=== PATIENT | female | born 1965 | race African-American/Black ===

== ENCOUNTER 2018-09-28 00:15 | Inpatient (IN) | payer MEDICARE, MEDICAID ==
[2018-09-28] VITALS (9 sets, daily range): BP systolic 134–165; BP diastolic 77–100
[~2018-09-28] VITALS: Ht 162.6 cm; Wt 89.8 kg
[~2018-09-28 00:15] MED LIST: BENA40TA9 PO; CARV6.2548 PO; CLON0.2T PO; CYAN100096 PO; DOXA4TAB3 PO; GABA300S PO; INSLAN SQ; NEPVIT PO; REN800 PO
[2018-09-28] MEDS ORDERED: NITROGLYCERIN OINT 1GM/INCH UDPKT TD ONE (00:30)
[2018-09-28] MEDS ORDERED: ASPIRIN 81MG TABLET PO ONE (00:30)
[2018-09-28 01:20] LABS: BG BASE EXCESS 0.9 mmol/L (-2.0-2.0); BG BILEVEL POS AIRWAY PRESSURE 18/5; BG DEOXYHEMOGLOBIN 0.3 % (0.0-5.0); BG FRACTION INSPIRED OXYGEN 100; BG HCO3 ACT 27.2 mmol/L (22.0-26.0); BG METHEMOGLOBIN 0.3 % (0.0-1.5); BG OXYGEN SATURATION 99.7 % (92.0-98.5); BG OXYHEMOGLOBIN 98.4 % (94.0-97.0); BG PCO2 50.7 mmHg (35.0-45.0); BG PH 7.348 (7.350-7.450); BG PO2 370.6 mmHg (75.0-100.0); BG SAMPLE SITE RIGHT BRACHIAL; BG TOTAL HEMOGLOBIN 12.5 g/dL (12.0-18.0); BG VENT MODE MASK - BIPAP
[2018-09-28 01:43] LABS: HEMATOCRIT. 38.5 % (36.0-48.0); HEMOGLOBIN. 11.9 g/dL (12.0-16.0); MEAN CORPUSCULAR HEMOGLOBIN 28.3 pg (28.0-32.0); MEAN CORPUSCULAR VOLUME 91.5 fL (81.0-99.0); MEAN PLATELET VOLUME 7.5 fl (7.4-10.4); PLATELET 155 x1000/uL (130-400); RED BLOOD CELL COUNT 4.21 mill/uL (4.2-5.4); RED CELL DISTRIBUTION WIDTH 16.7 % (11.6-14.6)
[2018-09-28 01:46] LABS: CHLORIDE 98 mEq/L (98-107); INR 1.1; PARTIAL THROMBOPLASTIN TIME 24.3 sec (23.4-31.0); PROTHROMBIN TIME 10.9 sec (9.1-11.1)
[2018-09-28 03:22] LABS: PLATELET ESTIMATE NORMAL
[2018-09-28] MEDS ORDERED: GABA-531 PO (06:18)
[2018-09-28] MEDS ORDERED: CARV12.545 PO (06:18)
[2018-09-28] MEDS ORDERED: IRBE300T18 PO (06:31)
[2018-09-28] MEDS ORDERED: ASPI-1159 PO (06:31)
[2018-09-28] MEDS ORDERED: LEVVL SQ (06:31)
[2018-09-28] MEDS ORDERED: FURO80TA3 PO (06:31)
[2018-09-28] MEDS ORDERED: ISOS20TA8 PO (06:31)
[2018-09-28] MEDS ORDERED: INSU100I19 SQ (06:31)
[2018-09-28] MEDS ORDERED: OMEP20CA10 PO (06:31)
[2018-09-28] MEDS ORDERED: POLY17PO3 PO (06:31)
[2018-09-28] MEDS ORDERED: ISOS1TAB PO (06:31)
[2018-09-28] MEDS ORDERED: FEBU40TA PO (06:31)
[2018-09-28] MEDS: GABAPENTIN 300MG CAPSULE PO SCH (10:35)
[2018-09-28] MEDS: CARVEDILOL 12.5MG TABLET PO SCH ×2 (10:35→21:23)
[2018-09-28] MEDS ORDERED: DEXTROSE 50% WATER 50ML SYRINGE IV PRN (11:45)
[2018-09-28] MEDS: INSULIN LISPRO 100 UNITS/ML SUBCUT SCH ×3 (13:00→21:12)
[2018-09-28] MEDS: ISOSORB DINIT/HYDRALAZINE HCL 20/37.5MG TABLET PO SCH ×2 (13:00→21:13)
[2018-09-28] MEDS: BLOOD SUGAR DIAGNOSTIC STRIP TEST SCH ×3 (13:06→21:06)
[2018-09-28] MEDS: FUROSEMIDE 40MG TABLET PO SCH (13:59)
[2018-09-28] MEDS: SEVELAMER CARBONATE 800 MG TABLET PO SCH ×2 (13:59→18:46)
[2018-09-28] MEDS ORDERED: LEVOFLOXACIN 750MG PREMIX 150 ML IV NR (14:30)
[2018-09-28] MEDS: CEFTRIAXONE 1,000 MG in DEXTROSE 5% WATER 50 ML IV SCH (15:14)
[2018-09-28] MEDS: IPRATROPIUM/ALBUTEROL 0.5-3(2.5)MG/3ML NEB HHN PRN (16:00)
[2018-09-28] MEDS: ASPIRIN 81MG EC TABLET PO SCH (16:23)
[2018-09-28 18:13] LABS: CLARITY URINE TURBID (CLEAR); COLOR URINE YELLOW (YELLOW); KETONES URINE NEGATIVE (NEGATIVE); LEUKOCYTE ESTERASE URINE NEGATIVE (NEGATIVE); NITRITE URINE NEGATIVE (NEGATIVE); OCCULT BLOOD URINE TRACE (NEGATIVE); PH URINE 7.5 (4.5-8.0); PROTEIN URINE 3+ (NEGATIVE); SPECIFIC GRAVITY URINE 1.014 (1.005-1.030); UROBILINOGEN URINE 0.2 E.U./dL (0.2-1.0)
[2018-09-28] MEDS: OMEPRAZOLE 20MG CAPSULE EXTENDED RELEASE PO SCH (21:12)
[2018-09-28] MEDS: CLONIDINE 0.1MG TABLET PO PRN ×2 (21:19→21:21)
[2018-09-28] MEDS: GUAIFENESIN/DM 600MG/30MG ER TAB 12HR PO SCH (21:20)
[2018-09-29] VITALS (12 sets, daily range): BP systolic 139–185; BP diastolic 75–110
[2018-09-29] MEDS: GUAIFENESIN 200MG/10ML SUGAR FREE UDC PO PRN ×3 (04:05→21:04)
[2018-09-29] MEDS: IPRATROPIUM/ALBUTEROL 0.5-3(2.5)MG/3ML NEB HHN PRN ×5 (04:10→20:18)
[2018-09-29] MEDS: ISOSORB DINIT/HYDRALAZINE HCL 20/37.5MG TABLET PO SCH ×4 (05:48→23:35)
[2018-09-29 07:02] LABS: CHLORIDE 105 mEq/L (98-107)
[2018-09-29 07:14] LABS: LDL CHOLESTEROL 59 mg/dL (5-100)
[2018-09-29 07:16] LABS: CREATINE KINASE 124 IU/L (26-192)
[2018-09-29 07:17] LABS: T4 FREE 0.99 ng/dL (0.76-1.46)
[2018-09-29 07:19] LABS: HDL CHOLESTEROL 57 mg/dL (40-59)
[2018-09-29 07:21] LABS: CREATINE KINASE MB FRACTION 3.5 ng/mL (0.5-3.6)
[2018-09-29 07:24] LABS: HEMATOCRIT 36.5 % (36.0-48.0); HEMOGLOBIN 11.3 g/dL (12.0-16.0); MEAN CORPUSCULAR HEMOGLOBIN 28.6 pg (28.0-32.0); MEAN CORPUSCULAR VOLUME 92.4 fL (81.0-99.0); PLATELET 125 x1000/uL (130-400); RED BLOOD CELL COUNT 3.95 mill/uL (4.2-5.4); RED CELL DISTRIBUTION WIDTH 16.9 % (11.6-14.6)
[2018-09-29] MEDS: BLOOD SUGAR DIAGNOSTIC STRIP TEST SCH ×4 (07:42→21:05)
[2018-09-29] MEDS: INSULIN LISPRO 100 UNITS/ML SUBCUT SCH ×4 (08:00→21:00)
[2018-09-29 08:02] LABS: TOTAL IRON BINDING CAPACITY 226 ug/dL (250-450)
[2018-09-29] MEDS: FOLIC ACID/VITAMIN B COMP W-C TABLET PO SCH (08:19)
[2018-09-29] MEDS: LOSARTAN POTASSIUM 100 MG TABLET PO SCH (08:24)
[2018-09-29] MEDS: SEVELAMER CARBONATE 800 MG TABLET PO SCH ×3 (08:24→17:17)
[2018-09-29] MEDS: FUROSEMIDE 40MG TABLET PO SCH (08:25)
[2018-09-29] MEDS: GABAPENTIN 300MG CAPSULE PO SCH (08:26)
[2018-09-29] MEDS: GUAIFENESIN/DM 600MG/30MG ER TAB 12HR PO SCH ×2 (08:26→21:05)
[2018-09-29] MEDS: ASPIRIN 81MG EC TABLET PO SCH (08:26)
[2018-09-29] MEDS: OMEPRAZOLE 20MG CAPSULE EXTENDED RELEASE PO SCH ×2 (08:26→21:04)
[2018-09-29] MEDS: CARVEDILOL 12.5MG TABLET PO SCH ×2 (08:28→21:04)
[2018-09-29] MEDS: CLONIDINE 0.1MG TABLET PO PRN (11:33)
[2018-09-29] MEDS: CEFTRIAXONE 1,000 MG in DEXTROSE 5% WATER 50 ML IV SCH (14:55)
[2018-09-29] MEDS: AMLODIPINE 10MG TABLET PO SCH (15:55)
[2018-09-29] MEDS: ACETAMINOPHEN 325MG TABLET PO PRN (16:11)
[2018-09-29] MEDS: TEMAZEPAM 15MG CAPSULE PO PRN (23:35)
[2018-09-30] VITALS (13 sets, daily range): BP systolic 146–185; BP diastolic 75–108
[2018-09-30] MEDS: IPRATROPIUM/ALBUTEROL 0.5-3(2.5)MG/3ML NEB HHN PRN ×5 (00:32→20:37)
[2018-09-30] MEDS: ISOSORB DINIT/HYDRALAZINE HCL 20/37.5MG TABLET PO SCH ×3 (05:26→18:26)
[2018-09-30] MEDS: ACETAMINOPHEN 325MG TABLET PO PRN (05:26)
[2018-09-30] MEDS: BLOOD SUGAR DIAGNOSTIC STRIP TEST SCH ×4 (07:41→21:36)
[2018-09-30] MEDS: INSULIN LISPRO 100 UNITS/ML SUBCUT SCH ×4 (08:00→21:00)
[2018-09-30] MEDS: FUROSEMIDE 40MG TABLET PO SCH ×2 (09:00→14:19)
[2018-09-30] MEDS: GABAPENTIN 300MG CAPSULE PO SCH (09:00)
[2018-09-30] MEDS: FOLIC ACID/VITAMIN B COMP W-C TABLET PO SCH (09:00)
[2018-09-30] MEDS: LOSARTAN POTASSIUM 100 MG TABLET PO SCH ×2 (09:00→14:19)
[2018-09-30] MEDS: SEVELAMER CARBONATE 800 MG TABLET PO SCH ×3 (09:00→18:24)
[2018-09-30] MEDS: ASPIRIN 81MG EC TABLET PO SCH ×2 (09:00→14:19)
[2018-09-30] MEDS: OMEPRAZOLE 20MG CAPSULE EXTENDED RELEASE PO SCH ×2 (09:00→21:35)
[2018-09-30] MEDS: GUAIFENESIN/DM 600MG/30MG ER TAB 12HR PO SCH ×2 (09:00→21:35)
[2018-09-30] MEDS: AMLODIPINE 10MG TABLET PO SCH ×2 (09:00→14:19)
[2018-09-30] MEDS: CARVEDILOL 12.5MG TABLET PO SCH ×3 (09:00→21:36)
[2018-09-30 09:23] LABS: BASOPHILS % 0.8 % (0.0-2.0); EOSINOPHILS % 5.9 % (0.0-5.0); HEMATOCRIT. 35.4 % (36.0-48.0); LYMPHOCYTES % 14.9 % (20.0-50.0); MEAN CORPUSCULAR HEMOGLOBIN 28.6 pg (28.0-32.0); MEAN CORPUSCULAR VOLUME 92.5 fL (81.0-99.0); MEAN PLATELET VOLUME 8.2 fl (7.4-10.4); MONOCYTES % 13.9 % (2.0-8.0); NEUTROPHILS % 64.5 % (40.0-76.0); PLATELET 140 x1000/uL (130-400); RED BLOOD CELL COUNT 3.83 mill/uL (4.2-5.4); RED CELL DISTRIBUTION WIDTH 16.7 % (11.6-14.6)
[2018-09-30 10:01] LABS: CREATINE KINASE MB FRACTION 2.7 ng/mL (0.5-3.6)
[2018-09-30] MEDS: GUAIFENESIN 200MG/10ML SUGAR FREE UDC PO PRN (12:43)
[2018-09-30] MEDS: LEVOFLOXACIN 500MG PREMIX 100 ML IV SCH (14:02)
[2018-09-30] MEDS: CEFTRIAXONE 1,000 MG in DEXTROSE 5% WATER 50 ML IV SCH (15:44)
[2018-09-30] MEDS: NIFEDIPINE XL 60MG TAB PO SCH (16:34)
[2018-09-30] MEDS ORDERED: ENALAPRIL 2.5MG/2ML VIAL 2ML IV NR (18:59)
[2018-09-30] MEDS ORDERED: ENALAPRIL 2.5MG/2ML VIAL 2ML IV PRN (19:00)
[2018-09-30] MEDS: TEMAZEPAM 15MG CAPSULE PO PRN (21:44)
[2018-10-01] VITALS (14 sets, daily range): BP systolic 106–163; BP diastolic 69–89
[2018-10-01] MEDS: IPRATROPIUM/ALBUTEROL 0.5-3(2.5)MG/3ML NEB HHN PRN ×4 (00:22→20:39)
[2018-10-01] MEDS: ISOSORB DINIT/HYDRALAZINE HCL 20/37.5MG TABLET PO SCH ×4 (00:49→18:41)
[2018-10-01 07:18] LABS: BASOPHILS % 0.7 % (0.0-2.0); EOSINOPHILS % 5.9 % (0.0-5.0); HEMATOCRIT. 34.4 % (36.0-48.0); HEMOGLOBIN. 10.9 g/dL (12.0-16.0); LYMPHOCYTES % 17.5 % (20.0-50.0); MEAN CORPUSCULAR HEMOGLOBIN 28.8 pg (28.0-32.0); MEAN PLATELET VOLUME 7.8 fl (7.4-10.4); MONOCYTES % 13.7 % (2.0-8.0); NEUTROPHILS % 62.2 % (40.0-76.0); PLATELET 132 x1000/uL (130-400); RED BLOOD CELL COUNT 3.78 mill/uL (4.2-5.4); RED CELL DISTRIBUTION WIDTH 16.4 % (11.6-14.6)
[2018-10-01] MEDS: BLOOD SUGAR DIAGNOSTIC STRIP TEST SCH ×4 (08:07→21:00)
[2018-10-01] MEDS: INSULIN LISPRO 100 UNITS/ML SUBCUT SCH ×4 (08:29→21:00)
[2018-10-01] MEDS: NIFEDIPINE XL 60MG TAB PO SCH ×2 (08:30→16:29)
[2018-10-01] MEDS: GABAPENTIN 300MG CAPSULE PO SCH (08:31)
[2018-10-01] MEDS: GUAIFENESIN/DM 600MG/30MG ER TAB 12HR PO SCH ×2 (08:31→21:28)
[2018-10-01] MEDS: LOSARTAN POTASSIUM 100 MG TABLET PO SCH (08:31)
[2018-10-01] MEDS: OMEPRAZOLE 20MG CAPSULE EXTENDED RELEASE PO SCH (08:31)
[2018-10-01] MEDS: ASPIRIN 81MG EC TABLET PO SCH (08:31)
[2018-10-01] MEDS: FOLIC ACID/VITAMIN B COMP W-C TABLET PO SCH (08:31)
[2018-10-01] MEDS: SEVELAMER CARBONATE 800 MG TABLET PO SCH ×3 (08:56→17:31)
[2018-10-01] MEDS: FUROSEMIDE 40MG TABLET PO SCH (08:57)
[2018-10-01] MEDS: CARVEDILOL 12.5MG TABLET PO SCH ×2 (08:57→23:00)
[2018-10-01] MEDS: ONDANSETRON HCL 4MG/2ML INJ IV PRN ×2 (12:31→21:24)
[2018-10-01] MEDS: CEFTRIAXONE 1,000 MG in DEXTROSE 5% WATER 50 ML IV SCH (14:33)
[2018-10-01] MEDS ORDERED: BISACODYL 10MG SUPP PR NR (16:15)
[2018-10-01] MEDS ORDERED: MAGNESIUM CITRATE 300ML SOLUTION PO NR (18:00)
[2018-10-01] MEDS ORDERED: MAGNESIUM CITRATE 300ML SOLUTION PO PRN (20:30)
[2018-10-02] VITALS (9 sets, daily range): BP systolic 109–155; BP diastolic 60–97
[2018-10-02] MEDS: IPRATROPIUM/ALBUTEROL 0.5-3(2.5)MG/3ML NEB HHN PRN ×4 (00:21→15:27)
[2018-10-02] MEDS: ISOSORB DINIT/HYDRALAZINE HCL 20/37.5MG TABLET PO SCH ×3 (01:51→18:00)
[2018-10-02] MEDS: BLOOD SUGAR DIAGNOSTIC STRIP TEST SCH ×3 (07:30→21:00)
[2018-10-02] MEDS: SEVELAMER CARBONATE 800 MG TABLET PO SCH ×2 (08:00→14:18)
[2018-10-02] MEDS: INSULIN LISPRO 100 UNITS/ML SUBCUT SCH ×2 (08:00→21:00)
[2018-10-02 08:03] LABS: BASOPHILS % 0.8 % (0.0-2.0); EOSINOPHILS % 4.5 % (0.0-5.0); HEMATOCRIT. 34.5 % (36.0-48.0); HEMOGLOBIN. 10.9 g/dL (12.0-16.0); LYMPHOCYTES % 14.4 % (20.0-50.0); MEAN CORPUSCULAR HEMOGLOBIN 28.4 pg (28.0-32.0); MEAN CORPUSCULAR VOLUME 90.5 fL (81.0-99.0); MEAN PLATELET VOLUME 7.9 fl (7.4-10.4); MONOCYTES % 9.4 % (2.0-8.0); NEUTROPHILS % 70.9 % (40.0-76.0); PLATELET 132 x1000/uL (130-400); RED BLOOD CELL COUNT 3.82 mill/uL (4.2-5.4); RED CELL DISTRIBUTION WIDTH 15.9 % (11.6-14.6)
[2018-10-02] MEDS: ASPIRIN 81MG EC TABLET PO SCH ×2 (09:00→18:13)
[2018-10-02] MEDS: FOLIC ACID/VITAMIN B COMP W-C TABLET PO SCH (09:00)
[2018-10-02] MEDS: LOSARTAN POTASSIUM 100 MG TABLET PO SCH ×2 (09:00→18:12)
[2018-10-02] MEDS: FUROSEMIDE 40MG TABLET PO SCH ×2 (09:00→18:12)
[2018-10-02] MEDS: GUAIFENESIN/DM 600MG/30MG ER TAB 12HR PO SCH ×3 (09:00→21:07)
[2018-10-02] MEDS: GABAPENTIN 300MG CAPSULE PO SCH ×2 (09:00→18:12)
[2018-10-02] MEDS: NIFEDIPINE XL 60MG TAB PO SCH ×2 (09:00→18:12)
[2018-10-02] MEDS: FAMOTIDINE 20MG TABLET PO SCH ×2 (09:00→18:13)
[2018-10-02] MEDS: CARVEDILOL 12.5MG TABLET PO SCH ×3 (09:00→21:07)
[2018-10-02] MEDS: LEVOFLOXACIN 500MG PREMIX 100 ML IV SCH (14:20)
[2018-10-02] MEDS: ENOXAPARIN 30MG/0.3ML SYR SUBCUT SCH (15:00)
[2018-10-02 15:38] LABS: BG BASE EXCESS 1.5 mmol/L (-2.0-2.0); BG DEOXYHEMOGLOBIN 18.9 % (0.0-5.0); BG FRACTION INSPIRED OXYGEN 21; BG HCO3 ACT 28.5 mmol/L (22.0-26.0); BG METHEMOGLOBIN 0.4 % (0.0-1.5); BG OXYGEN SATURATION 80.8 % (92.0-98.5); BG OXYHEMOGLOBIN 79.7 % (94.0-97.0); BG PH 7.324 (7.350-7.450); BG PO2 47.5 mmHg (75.0-100.0); BG SAMPLE SITE RIGHT RADIAL; BG TOTAL HEMOGLOBIN 12.1 g/dL (12.0-18.0); BG VENT MODE ROOM AIR
[2018-10-02 19:56] LABS: BG BASE EXCESS 1.1 mmol/L (-2.0-2.0); BG CARBOXYHEMOGLOBIN 1.3 % (0.5-1.5); BG DEOXYHEMOGLOBIN 4.6 % (0.0-5.0); BG FRACTION INSPIRED OXYGEN 30; BG HCO3 ACT 27.8 mmol/L (22.0-26.0); BG METHEMOGLOBIN 0.1 % (0.0-1.5); BG OXYGEN SATURATION 95.3 % (92.0-98.5); BG PCO2 54.1 mmHg (35.0-45.0); BG PH 7.329 (7.350-7.450); BG SAMPLE SITE RIGHT RADIAL; BG TOTAL HEMOGLOBIN 11.5 g/dL (12.0-18.0); BG VENT MODE NASAL CANNULA
[2018-10-02] MEDS: CEFTRIAXONE 1,000 MG in DEXTROSE 5% WATER 50 ML IV SCH (20:59)
[2018-10-03] VITALS (10 sets, daily range): BP systolic 120–167; BP diastolic 63–90
[2018-10-03] MEDS: ACETAMINOPHEN 325MG TABLET PO PRN (04:16)
[2018-10-03] MEDS: ISOSORB DINIT/HYDRALAZINE HCL 20/37.5MG TABLET PO SCH ×6 (06:00→23:54)
[2018-10-03] MEDS: BLOOD SUGAR DIAGNOSTIC STRIP TEST SCH ×4 (07:30→21:00)
[2018-10-03] MEDS: INSULIN LISPRO 100 UNITS/ML SUBCUT SCH ×4 (08:00→21:00)
[2018-10-03] MEDS: SEVELAMER CARBONATE 800 MG TABLET PO SCH ×4 (08:00→17:40)
[2018-10-03] MEDS: CARVEDILOL 12.5MG TABLET PO SCH ×2 (08:59→20:25)
[2018-10-03] MEDS: LOSARTAN POTASSIUM 100 MG TABLET PO SCH (08:59)
[2018-10-03] MEDS: GABAPENTIN 300MG CAPSULE PO SCH (09:00)
[2018-10-03] MEDS: FAMOTIDINE 20MG TABLET PO SCH (09:00)
[2018-10-03] MEDS: GUAIFENESIN/DM 600MG/30MG ER TAB 12HR PO SCH ×2 (09:00→20:25)
[2018-10-03] MEDS: ASPIRIN 81MG EC TABLET PO SCH (09:00)
[2018-10-03] MEDS: NIFEDIPINE XL 60MG TAB PO SCH ×2 (09:00→17:40)
[2018-10-03] MEDS: FOLIC ACID/VITAMIN B COMP W-C TABLET PO SCH (09:00)
[2018-10-03] MEDS: FUROSEMIDE 40MG TABLET PO SCH (09:01)
[2018-10-03] MEDS: ONDANSETRON HCL 4MG/2ML INJ IV PRN ×2 (11:45→21:01)
[2018-10-03] MEDS: ENOXAPARIN 30MG/0.3ML SYR SUBCUT SCH (15:24)
[2018-10-03] MEDS: CEFTRIAXONE 1,000 MG in DEXTROSE 5% WATER 50 ML IV SCH (15:24)
[2018-10-03] MEDS: IPRATROPIUM/ALBUTEROL 0.5-3(2.5)MG/3ML NEB HHN PRN (20:01)
[2018-10-04] VITALS (10 sets, daily range): BP systolic 114–167; BP diastolic 50–98
[2018-10-04] MEDS: IPRATROPIUM/ALBUTEROL 0.5-3(2.5)MG/3ML NEB HHN PRN ×2 (00:17→05:00)
[2018-10-04] MEDS: ISOSORB DINIT/HYDRALAZINE HCL 20/37.5MG TABLET PO SCH ×3 (05:59→17:58)
[2018-10-04] MEDS: BLOOD SUGAR DIAGNOSTIC STRIP TEST SCH ×4 (07:30→21:05)
[2018-10-04 07:46] LABS: BASOPHILS % 0.9 % (0.0-2.0); EOSINOPHILS % 5.9 % (0.0-5.0); HEMATOCRIT. 33.8 % (36.0-48.0); HEMOGLOBIN. 10.8 g/dL (12.0-16.0); LYMPHOCYTES % 16.3 % (20.0-50.0); MEAN CORPUSCULAR HEMOGLOBIN 28.6 pg (28.0-32.0); MEAN CORPUSCULAR VOLUME 89.6 fL (81.0-99.0); MONOCYTES % 11.9 % (2.0-8.0); PLATELET 135 x1000/uL (130-400); RED BLOOD CELL COUNT 3.77 mill/uL (4.2-5.4); RED CELL DISTRIBUTION WIDTH 15.3 % (11.6-14.6)
[2018-10-04] MEDS: INSULIN LISPRO 100 UNITS/ML SUBCUT SCH ×4 (08:00→21:00)
[2018-10-04] MEDS: CARVEDILOL 12.5MG TABLET PO SCH ×2 (09:00→21:06)
[2018-10-04] MEDS: NIFEDIPINE XL 60MG TAB PO SCH ×2 (09:00→16:48)
[2018-10-04] MEDS: LOSARTAN POTASSIUM 100 MG TABLET PO SCH (09:00)
[2018-10-04] MEDS: SEVELAMER CARBONATE 800 MG TABLET PO SCH ×3 (13:00→17:59)
[2018-10-04] MEDS: ASPIRIN 81MG EC TABLET PO SCH (13:30)
[2018-10-04] MEDS: FOLIC ACID/VITAMIN B COMP W-C TABLET PO SCH (13:30)
[2018-10-04] MEDS: GUAIFENESIN/DM 600MG/30MG ER TAB 12HR PO SCH ×2 (13:30→21:05)
[2018-10-04] MEDS: FUROSEMIDE 40MG TABLET PO SCH (13:30)
[2018-10-04] MEDS: GABAPENTIN 300MG CAPSULE PO SCH (13:30)
[2018-10-04] MEDS: FAMOTIDINE 20MG TABLET PO SCH (13:31)
[2018-10-04] MEDS: LEVOFLOXACIN 500MG PREMIX 100 ML IV SCH (13:46)
[2018-10-04] MEDS: CEFTRIAXONE 1,000 MG in DEXTROSE 5% WATER 50 ML IV SCH (16:29)
[2018-10-04] MEDS: ENOXAPARIN 40MG/0.4ML SYR SUBCUT SCH (16:41)
[2018-10-04] MEDS: GUAIFENESIN 200MG/10ML SUGAR FREE UDC PO PRN (21:08)
[2018-10-05] VITALS (13 sets, daily range): BP systolic 132–171; BP diastolic 60–99
[2018-10-05] MEDS: ISOSORB DINIT/HYDRALAZINE HCL 20/37.5MG TABLET PO SCH ×4 (00:17→17:58)
[2018-10-05] MEDS: GUAIFENESIN 200MG/10ML SUGAR FREE UDC PO PRN (01:41)
[2018-10-05] MEDS: IPRATROPIUM/ALBUTEROL 0.5-3(2.5)MG/3ML NEB HHN PRN ×3 (01:53→15:59)
[2018-10-05] MEDS: INSULIN LISPRO 100 UNITS/ML SUBCUT SCH ×4 (08:00→21:00)
[2018-10-05] MEDS: BLOOD SUGAR DIAGNOSTIC STRIP TEST SCH ×4 (08:17→21:21)
[2018-10-05] MEDS: FAMOTIDINE 20MG TABLET PO SCH (08:18)
[2018-10-05] MEDS: SEVELAMER CARBONATE 800 MG TABLET PO SCH ×3 (08:18→17:58)
[2018-10-05] MEDS: FOLIC ACID/VITAMIN B COMP W-C TABLET PO SCH (08:18)
[2018-10-05] MEDS: ASPIRIN 81MG EC TABLET PO SCH (08:19)
[2018-10-05] MEDS: GABAPENTIN 300MG CAPSULE PO SCH (08:19)
[2018-10-05] MEDS: FUROSEMIDE 40MG TABLET PO SCH (08:25)
[2018-10-05] MEDS: GUAIFENESIN/DM 600MG/30MG ER TAB 12HR PO SCH ×2 (08:25→21:24)
[2018-10-05] MEDS: CARVEDILOL 12.5MG TABLET PO SCH ×2 (08:26→21:25)
[2018-10-05] MEDS: NIFEDIPINE XL 60MG TAB PO SCH ×2 (08:26→17:58)
[2018-10-05] MEDS: LOSARTAN POTASSIUM 100 MG TABLET PO SCH (08:26)
[2018-10-05 12:45] LABS: BG BASE EXCESS 0.3 mmol/L (-2.0-2.0); BG CARBOXYHEMOGLOBIN 0.8 % (0.5-1.5); BG DEOXYHEMOGLOBIN 12.7 % (0.0-5.0); BG FRACTION INSPIRED OXYGEN 21; BG HCO3 ACT 27.1 mmol/L (22.0-26.0); BG METHEMOGLOBIN 0.3 % (0.0-1.5); BG OXYGEN SATURATION 87.2 % (92.0-98.5); BG OXYHEMOGLOBIN 86.2 % (94.0-97.0); BG PCO2 54.2 mmHg (35.0-45.0); BG PH 7.317 (7.350-7.450); BG PO2 57.8 mmHg (75.0-100.0); BG SAMPLE SITE RIGHT BRACHIAL; BG TOTAL HEMOGLOBIN 11.2 g/dL (12.0-18.0); BG VENT MODE ROOM AIR
[2018-10-05] MEDS: CEFTRIAXONE 1,000 MG in DEXTROSE 5% WATER 50 ML IV SCH (14:58)
[2018-10-05] MEDS: ONDANSETRON HCL 4MG/2ML INJ IV PRN (16:01)
[2018-10-05] MEDS: ENOXAPARIN 40MG/0.4ML SYR SUBCUT SCH (17:59)
[2018-10-06] VITALS (7 sets, daily range): BP systolic 128–142; BP diastolic 63–84
[2018-10-06] MEDS: ISOSORB DINIT/HYDRALAZINE HCL 20/37.5MG TABLET PO SCH ×3 (00:30→14:35)
[2018-10-06] MEDS: ONDANSETRON HCL 4MG/2ML INJ IV PRN (03:45)
[2018-10-06] MEDS: BLOOD SUGAR DIAGNOSTIC STRIP TEST SCH ×2 (07:30→12:30)
[2018-10-06] MEDS: SEVELAMER CARBONATE 800 MG TABLET PO SCH ×2 (08:00→14:33)
[2018-10-06] MEDS: INSULIN LISPRO 100 UNITS/ML SUBCUT SCH ×2 (08:00→13:30)
[2018-10-06] MEDS: IPRATROPIUM/ALBUTEROL 0.5-3(2.5)MG/3ML NEB HHN PRN ×2 (08:45→16:21)
[2018-10-06] MEDS: NIFEDIPINE XL 60MG TAB PO SCH (09:00)
[2018-10-06] MEDS: CARVEDILOL 12.5MG TABLET PO SCH (09:00)
[2018-10-06] MEDS: FOLIC ACID/VITAMIN B COMP W-C TABLET PO SCH (14:33)
[2018-10-06] MEDS: LOSARTAN POTASSIUM 100 MG TABLET PO SCH (14:33)
[2018-10-06] MEDS: GUAIFENESIN/DM 600MG/30MG ER TAB 12HR PO SCH (14:33)
[2018-10-06] MEDS: GABAPENTIN 300MG CAPSULE PO SCH (14:33)
[2018-10-06] MEDS: FAMOTIDINE 20MG TABLET PO SCH (14:34)
[2018-10-06] MEDS: FUROSEMIDE 40MG TABLET PO SCH (14:34)
[2018-10-06] MEDS: ASPIRIN 81MG EC TABLET PO SCH (14:36)
== END 2018-10-06 16:45 | disposition home or self-care (01) | DRG 291 ==
LOC: ER 00:15 → 5EST 02:47 → EDBEDREQ 02:51 → ENRESERV 04:18
PROVIDERS: ADMIT Internal Medicine; ATTEND Internal Medicine
PROC: 5A1D70Z Performance of Urinary Filtration, Intermittent, Less than 6 Hours Per Day (ICD-10-PCS; 2018-09-28)
PROC: 5A09357 Assistance with Respiratory Ventilation, Less than 24 Consecutive Hours, Continuous Positive Airway Pressure (ICD-10-PCS; 2018-09-28)
PROC: 5A1D70Z Performance of Urinary Filtration, Intermittent, Less than 6 Hours Per Day (ICD-10-PCS; 2018-09-30)
PROC: 5A09357 Assistance with Respiratory Ventilation, Less than 24 Consecutive Hours, Continuous Positive Airway Pressure (ICD-10-PCS; 2018-09-30)
PROC: 5A09357 Assistance with Respiratory Ventilation, Less than 24 Consecutive Hours, Continuous Positive Airway Pressure (ICD-10-PCS; 2018-10-01)
PROC: 5A09357 Assistance with Respiratory Ventilation, Less than 24 Consecutive Hours, Continuous Positive Airway Pressure (ICD-10-PCS; principal; 2018-10-02)
PROC: 5A1D70Z Performance of Urinary Filtration, Intermittent, Less than 6 Hours Per Day (ICD-10-PCS; 2018-10-02)
PROC: 5A09357 Assistance with Respiratory Ventilation, Less than 24 Consecutive Hours, Continuous Positive Airway Pressure (ICD-10-PCS; 2018-10-03)
PROC: 5A1D70Z Performance of Urinary Filtration, Intermittent, Less than 6 Hours Per Day (ICD-10-PCS; 2018-10-04)
PROC: 5A1D70Z Performance of Urinary Filtration, Intermittent, Less than 6 Hours Per Day (ICD-10-PCS; 2018-10-06)
DX: I13.2 Hypertensive heart and chronic kidney disease with heart failure and with stage 5 chronic kidney disease, or end stage renal disease (principal); I50.43 Acute on chronic combined systolic (congestive) and diastolic (congestive) heart failure; N18.6 End stage renal disease; J18.9 Pneumonia, unspecified organism; J96.22 Acute and chronic respiratory failure with hypercapnia; J96.21 Acute and chronic respiratory failure with hypoxia; J44.0 Chronic obstructive pulmonary disease with (acute) lower respiratory infection; J98.11 Atelectasis; Z94.0 Kidney transplant status; E87.2 Acidosis; R65.10 Systemic inflammatory response syndrome (SIRS) of non-infectious origin without acute organ dysfunction; E78.5 Hyperlipidemia, unspecified; E11.42 Type 2 diabetes mellitus with diabetic polyneuropathy; Z99.2 Dependence on renal dialysis; E11.22 Type 2 diabetes mellitus with diabetic chronic kidney disease; D63.1 Anemia in chronic kidney disease; E66.9 Obesity, unspecified; E78.00 Pure hypercholesterolemia, unspecified; J20.9 Acute bronchitis, unspecified; E79.0 Hyperuricemia without signs of inflammatory arthritis and tophaceous disease; E88.81 Metabolic syndrome and other insulin resistance; J84.10 Pulmonary fibrosis, unspecified; F41.8 Other specified anxiety disorders; I42.9 Cardiomyopathy, unspecified; K59.00 Constipation, unspecified; Z79.4 Long term (current) use of insulin; Z79.899 Other long term (current) drug therapy; Z82.49 Family history of ischemic heart disease and other diseases of the circulatory system; Z82.5 Family history of asthma and other chronic lower respiratory diseases; Z87.891 Personal history of nicotine dependence; Z90.49 Acquired absence of other specified parts of digestive tract; Z98.891 History of uterine scar from previous surgery; Z99.81 Dependence on supplemental oxygen; Z68.34 Body mass index [BMI] 34.0-34.9, adult
CPT/HCPCS: 36415; 36600; 71045; 74018; 80048; 80061; 82248; 82375; 82550; 82553; 82805; 82962; 83540; 83550; 83735; 83880; 84439; 84443; 84480; 84484; 85027; 85379; 87070; 93005; 93306; 93970; 94640; 96365; 99291; J0696; J1650; J1815; J1956; J2405; J3490; J7050; J7060; J7620